=== PATIENT | male | born 1950 | race Caucasian/White ===

== ENCOUNTER 2018-01-23 11:32 | Observation (INO) | payer OTHER ==
[2017-12-22 13:12] VITALS: Ht 170.2 cm; Wt 122.6 kg
--- NOTE | 2017-12-22 13:42 | PAT Medication Instructions ---
Service Date Dec 22, 2017. Current Home Medication List Aspirin (Aspirin Ec), 81 MG PO HS Fluticasone Prop/Salmeterol (Advair Diskus 500/50 60 Dose), 1 PUFF INH BID Fluticasone Propionate (Nasal) (Flonase Allergy Relief), 2 SPRAYS INTNAS QAM Gabapentin (Neurontin), 600 MG PO BID Glimepiride (Glimepiride), 8 MG PO QAM Insulin Glargine (Lantus), 30 UNITS SC AMPM Losartan Potassium (Cozaar), 50 MG PO QAM Metformin Hcl (Glucophage), 1,000 MG PO BID Montelukast Sodium (Singulair), 10 MG PO QAM Oxycodone/Acetaminophen 7.5MG/325MG (Percocet 7.5MG/325MG), 1 TAB PO Q8H PRN for N Pantoprazole (Protonix), 40 MG PO BID Polyethylene Glycol-Propylene (Systane), 1 DROPS OP QPM Ranitidine (Zantac), 150 MG PO HS Tamsulosin Hcl (Flomax), 0.4 MG PO BID Testosterone Cypionate (Testosterone Cypionate), 200 MG INJ [id number] Tiotropium [place] (Spiriva Handihaler), 1 CAP INH QAM [Albuterol Neb], 1 PUFF INH QPM Medication Instructions For Your Scheduled Surgery -Continue as directed: Testosterone Cypionate (Testosterone Cypionate), 200 MG INJ [id number] - Hold the following medications the morning of surgery: Glimepiride (Glimepiride), 8 MG PO QAM Losartan Potassium (Cozaar), 50 MG PO QAM Metformin Hcl (Glucophage), 1,000 MG PO BID - Take the following medications the morning of surgery with a sip of water: Fluticasone Prop/Salmeterol (Advair Diskus 500/50 60 Dose), 1 PUFF INH BID Fluticasone Propionate (Nasal) (Flonase Allergy Relief), 2 SPRAYS INTNAS QAM Gabapentin (Neurontin), 600 MG PO BID Montelukast Sodium (Singulair), 10 MG PO QAM Oxycodone/Acetaminophen 7.5MG/325MG (Percocet 7.5MG/325MG), 1 TAB PO Q8H PRN ( if needed, can be taken up to four hours before surgery) Pantoprazole (Protonix), 40 MG PO BID Tamsulosin Hcl (Flomax), 0.4 MG PO BID Tiotropium [place] (Spiriva Handihaler), 1 CAP INH QAM - Take the following medications as scheduled the night before surgery: Aspirin (Aspirin Ec), 81 MG PO HS Fluticasone Prop/Salmeterol (Advair Diskus 500/50 60 Dose), 1 PUFF INH BID Gabapentin (Neurontin), 600 MG PO BID Insulin Glargine (Lantus), 30 UNITS SC AMPM Metformin Hcl (Glucophage), 1,000 MG PO BID Oxycodone/Acetaminophen 7.5MG/325MG (Percocet 7.5MG/325MG), 1 TAB PO Q8H PRN ( if needed) Pantoprazole (Protonix), 40 MG PO BID Polyethylene Glycol-Propylene (Systane), 1 DROPS OP QPM Ranitidine (Zantac), 150 MG PO HS Tamsulosin Hcl (Flomax), 0.4 MG PO BID [Albuterol Neb], 1 PUFF INH QPM - For Insulin Dependent Diabetic patients: Test blood sugar A.M. of surgery. - If BLOOD SUGAR IS GREATER THAN 150, take half of your regular dose of: Insulin Glargine (Lantus)-- TAKE 15 UNITS - If BLOOD SUGAR IS LESS THAN 150, do not take any: Insulin Glargine ( Lantus) If you have any questions please call us at [phone] or [phone] or [phone]
--- NOTE | 2017-12-22 14:20 | DIAGNOSTIC IMAGING REPORT ---
CHEST 2 VIEWS ROUTINE CLINICAL HISTORY: Preoperative chest COMPARISON STUDY: No previous studies for comparison. FINDINGS: The cardiac and mediastinal contours are normal. There is no evidence of focal pulmonary consolidation. There is no evidence of failure. No pleural effusions are visualized.[ There are old bilateral rib fractures. IMPRESSION: No active disease in the chest. Electronically signed by: Xavier Warren M.D. 12/22/2017 2:19 PM Dictated Date/Time: 12/22/2017 2:18 PM
[2017-12-22 14:55] LABS: BASO % 0.6 %; BASO ABS # 0.06 K/uL (0-0.2); EOS % 0.5 %; EOS ABS # 0.05 K/uL (0-0.5); HEMATOCRIT 43.9 % (42-52); HEMOGLOBIN 14.4 g/dL (14.0-18.0); IG# 0.14 K/uL (0.00-0.02); LYMPH % 22.7 %; LYMPH ABS # 2.18 K/uL (1.2-3.4); MEAN CELL VOLUME 85.4 fL (80-100); MEAN CORPUSCULAR HGB CONC 32.8 g/dl (32-36); MEAN PLATELET VOLUME 9.2 fL (7.4-10.4); MONO % 9.2 %; MONO ABS # 0.88 K/uL (0.11-0.59); NEUT % 65.5 %; NEUT ABS # 6.29 K/uL (1.4-6.5); PLATELET COUNT 203 K/uL (130-400); RED CELL DISTRIBUTION WIDTH CV 15.2 % (11.5-14.5); RED CELL DISTRIBUTION WIDTH SD 47.1 fL (36.4-46.3)
[2017-12-22 15:06] LABS: PTT PATIENT 23.8 SECONDS (21.0-31.0)
[2017-12-22 15:19] LABS: CALCIUM 9.3 mg/dl (8.5-10.1); CREATININE 0.87 mg/dl (0.60-1.40); POTASSIUM 3.8 mmol/L (3.5-5.1)
--- NOTE | 2018-01-22 07:01 | HISTORY & PHYSICAL EXAMINATION ---
DATE OF ADMISSION: 01/23/2018 CHIEF COMPLAINT: Avascular necrosis of the left shoulder. HISTORY OF PRESENT ILLNESS: Jake is a very pleasant 67-year-old male who fell and sustained a proximal humerus fracture about a year ago. He was treated in [place] conservatively. The fracture went on to heal, but he has been having significant increase in shoulder pains recently. He has very limited range of motion of his shoulder. MRI showed an intact rotator cuff, but avascular necrosis of the humeral head. He has elected to proceed with total shoulder arthroplasty. PAST MEDICAL HISTORY: Significant for insulin-dependent diabetes. PAST SURGICAL HISTORY: Significant for a right total knee arthroplasty and surgery to his finger. ALLERGIES: BEE STINGS. MEDICATIONS: Include Lantus and metformin. FAMILY HISTORY: Significant for stroke and diabetes. SOCIAL HISTORY: He is , has 1-2 drinks a week and is moderately active. REVIEW OF SYSTEMS: He complains of left shoulder pain. All other pertinent review of systems are negative. PHYSICAL EXAMINATION: GENERAL: He is awake, alert and orient x3. He is in no apparent distress. HEENT: Pupils equal, round react to light. Extraocular movements are intact. Oral mucosa is pink and moist. HEART: Regular rate per radial pulse. LUNGS: [place] symmetrically bilaterally with no audible breath sounds. ABDOMEN: Soft, nontender, nondistended. MUSCULOSKELETAL: On physical examination of the left shoulder, he has very poor range of motion only about 30 degrees of forward elevation and 30 degrees of abduction. Passively it is hard for me to get him any further than that. He seems to have about 5/5 muscle strength with external rotation. He is unable to do any full can testing. He has a mildly positive belly press test. Significant tenderness to palpation over the anterior glenohumeral joint line. IMAGING DATA: MRI of the shoulder shows avascular necrosis of the humeral head. The rotator cuff appears mostly intact. The long head of biceps tendon is not well visualized. IMPRESSION: Avascular necrosis of the left humerus. PLAN: We will proceed with a left shoulder replacement. He understands it will either be a total shoulder arthroplasty or reverse, it depends on what I see intraoperatively. Postoperatively, he will be placed in an arm sling and kept overnight in the hospital for postoperative medical management.
[2018-01-23] VITALS (9 sets, daily range): BP systolic 95–135; BP diastolic 69–93; PULSE 79–107; TEMP 36.2–36.8; O2SAT 93–99
[~2018-01-23] VITALS: Ht 170.2 cm; Wt 122.6 kg
[2018-01-23] MEDS: TRANEXAMIC ACID INJ 1,000 MG x 2 Bags IV SCH ×4 (06:30→13:10)
[~2018-01-23 11:32] MED LIST: ACETAMINOPHEN 500 MG TAB PO SCH; ADVIN50/60 INH; ALBUTEROL NEB INH; ASPI81TA28 PO; ATROPINE SULFATE 0.1 MG/ML 5ML SYR IV PRN; CEFAZOLIN 2000MG IV PUSH 15 ML IV SCH; CEFAZOLIN 3000MG IV PUSH 22.5 ML IV SCH; EpHEDrine SULFATE INJ 50 MG/ML AMP IV PRN; FAMOTIDINE 20 MG TAB PO SCH; FENTANYL CITRATE INJ 50 MCG/1 ML 2 ML VIAL IV PRN; FLUT0.15 INTNAS; GABA-113 PO; GABAPENTIN 300 MG CAP PO SCH; GLIM4TAB2 PO; HYDROmorphone INJ 1 MG/ML SYR IV PRN; INSDGI SC; LACTATED RINGER'S 1000ML 1,000 ML IV SCH; LACTATED RINGER'S 1000ML IV SCH; LOSA50TA54 PO; METF-384 PO; MONT1TAB3 PO; ONDANSETRON INJ 2 MG/ML 2 ML VIAL IV PRN; OXYC7.5T65 PO; PANT40TA PO; PHENYLEPHRINE 100MCG/ML 5ML SYR IV PRN; POLYSOL4 OP; PROMETHAZINE HCL INJ 12.5 MG in SODIUM CHLORIDE 0.9% 50ML 50 ML IV PRN; RANI150T85 PO; ROPIVACAINE 0.5% 5 MG/ML 30 ML VIAL ONE; ROPIVACAINE 5MG/ML 30 ML 150 MG, BUPIVACAINE 0.5% MPF INJ 30 ML, EpINEphrine HCL INJ 0.... INFIL SCH; SPRIN/30 INH; TAMS0.4C38 PO; TEST1INJ2 INJ
--- NOTE | 2018-01-23 12:05 | History & Physical Bridge Note ---
H&P Re-Evaluation Bridge Note: I have examined the patient, reviewed the History & Physical and in the interval since the performance of the History & Physical I have noted the following changes of clinical significance: No changes noted
[2018-01-23] MEDS ORDERED: ORTHO JOINT ANESTHETIC ONE (12:32)
[2018-01-23] MEDS ORDERED: FENTANYL CITRATE INJ 50 MCG/1 ML 2 ML VIAL ONE (13:11)
[2018-01-23] MEDS ORDERED: MIDAZOLAM HCL 1 MG/ML 2ML VIAL ONE (13:11)
[2018-01-23] MEDS ORDERED: PROPOFOL IV EMULSION 10 MG/ML 20 ML VIAL IV ONE (14:30)
[2018-01-23] MEDS ORDERED: PHENYLEPHRINE HCL INJ 10 MG/ML VIAL ONE (14:30)
[2018-01-23] MEDS ORDERED: LIDOCAINE HCL 2% 2 ML VIAL (20MG/ML) ONE (14:30)
[2018-01-23] MEDS ORDERED: ONDANSETRON INJ 2 MG/ML 2 ML VIAL ONE (14:30)
[2018-01-23] MEDS ORDERED: ROCURONIUM BROMIDE 10 MG/ML 5 ML VIAL IV ONE (14:30)
[2018-01-23] MEDS: BACITRACIN 50000 UNIT VIAL ONE ×2 (14:52→14:53)
--- NOTE | 2018-01-23 15:01 | [facility] Post Operative Brief Note ---
Immediate Operative Summary Operative Date Jan 23, 2018. Pre-Operative Diagnosis Avascular Necrosis of the Left Humerus Post-Operative Diagnosis Avascular Necrosis of the Left Humerus Procedure(s) Performed Left Reverse Total Shoulder Arthroplasty, Uncemented Surgeon Dr. Bandar Albright Box Car Checker Surgeon(s) Jeancarlos Bob PA-C Estimated Blood Loss 200ml Findings Consistent with Post-Op Diagnosis Specimens Permanent Solution: A.) Left Humeral Head Drains None Anesthesia Type General Regional Complication(s) none Disposition Disposition: Recovery Room / PACU
[2018-01-23] MEDS ORDERED: DEXTROSE 50% 50 ML SYR IV PRN (15:15)
[2018-01-23] MEDS ORDERED: MoRPHine SULFATE 2 MG/ML CARP IV PRN (15:15)
[2018-01-23] MEDS ORDERED: GLUCOSE 40% GEL 15 GM TUBE PO PRN (15:15)
[2018-01-23] MEDS ORDERED: ONDANSETRON INJ 2 MG/ML 2 ML VIAL IV PRN (15:15)
[2018-01-23] MEDS ORDERED: SOD PHOSPHATE/SOD BIPHOSPHATE ENEMA 132 ML BTL PR PRN (15:15)
[2018-01-23] MEDS ORDERED: GLUCAGON FOR INJ 1 MG VIAL SQ PRN (15:15)
[2018-01-23] MEDS ORDERED: MAGNESIUM HYDROXIDE SUSP 30 ML UDC PO PRN (15:15)
[2018-01-23] MEDS ORDERED: METOCLOPRAMIDE HCL INJ 5 MG/ML 2 ML VIAL IV PRN (15:15)
[2018-01-23] MEDS ORDERED: BISACODYL 10 MG SUPP PR PRN (15:15)
[2018-01-23] MEDS ORDERED: GLUCOSE 10 TABS/TUBE PO PRN (15:15)
[2018-01-23] MEDS ORDERED: NALOXONE HCL 0.4 MG/1 ML VIAL/CARP IV PRN (15:15)
[2018-01-23] MEDS ORDERED: IV FLUIDS COMPLETED PRN (15:30)
[2018-01-23] MEDS ORDERED: PHARMACY GLYCEMIC MGMT CONSULT PRN (15:31)
--- NOTE | 2018-01-23 15:39 | DIAGNOSTIC IMAGING REPORT ---
L SHOULDER MIN 2 VIEWS ROUTINE CLINICAL HISTORY: Post shoulder surgery COMPARISON: None. DISCUSSION: Anatomic alignment posttotal left shoulder arthroplasty. Expected soft tissue postoperative change. IMPRESSION: Anatomic alignment post total left shoulder arthroplasty. The above report was generated using voice recognition software. It may contain grammatical, syntax or spelling errors. Electronically signed by: Raza Alexander M.D. 01/23/2018 3:38 PM Dictated Date/Time: 01/23/2018 3:37 PM
[2018-01-23] MEDS: INSULIN ASPART 100 UNITS/ML 3 ML PEN SC SCH ×3 (16:00→21:56)
--- NOTE | 2018-01-23 16:00 | Anesthesiology Progress Note ---
Anesthesia Post Op Note Date & Time Jan 23, 2018 at 16:00 Vital Signs Pain Intensity: 0 Vital Signs Past 12 Hours Date Time Temp Pulse Resp B/P (MAP) Pulse Ox O2 Delivery O2 Flow Rate FiO2 01/23/18 15:46 36.6 87 22 132/90 (107) 94 Nasal Cannula 2 01/23/18 15:36 92 19 112/80 94 01/23/18 15:36 92 19 01/23/18 15:31 98 19 01/23/18 15:31 98 19 119/88 97 01/23/18 15:26 93 16 123/90 96 01/23/18 15:26 93 16 01/23/18 15:23 122/64 01/23/18 15:22 101/84 01/23/18 15:21 96 22 01/23/18 15:21 101 22 100 01/23/18 15:16 102 20 01/23/18 15:16 36.8 100 20 151/92 (116) 96 Oxymask 10 01/23/18 15:16 102 20 97 01/23/18 12:19 36.8 105 20 135/93 96 Room Air Notes Mental Status: alert / awake / arousable, participated in evaluation Pt Amnestic to Procedure: Yes Nausea / Vomiting: adequately controlled Pain: adequately controlled Airway Patency, RR, SpO2: stable & adequate BP & HR: stable & adequate Hydration State: stable & adequate Anesthetic Complications: no major complications apparent
--- NOTE | 2018-01-23 16:43 | OPERATIVE REPORT ---
DATE OF OPERATION: 01/23/2018 PREOPERATIVE DIAGNOSIS: Avascular necrosis following left proximal humerus fracture. POSTOPERATIVE DIAGNOSIS: Same. PROCEDURE: Left reverse total shoulder arthroplasty. SURGEON: Dr. Bandar Albright. GOLF COURSE MANAGER: Dominic Bob PA-C, whose assistance was necessary for positioning the arm and helping with retraction and closure. ANESTHESIA: General with left interscalene nerve block. COMPLICATIONS: None. CONDITION: Stable to PACU. INDICATIONS: Jake is a pleasant 67-year-old male who sustained a left proximal humerus fracture about a year ago. It looked like he went on to a union; however, he then began having more and more pain. MRI showed avascular necrosis of the humeral head and then followup x-rays showed collapse. He had significant tightness and weakness of his shoulder as well. After failing conservative treatment, he elected to undergo arthroplasty. DESCRIPTION OF THE PROCEDURE: On 01/23/2018, he arrived at [facility] for the above procedures. He was seen in the preoperative holding area and the operative extremity was identified and signed. He was given a preoperative antibiotic and a left interscalene nerve block. He was taken back to the operating room, laid on table in supine position and put under general anesthesia. He was then put into the beachchair position. The left shoulder was prepped and draped in sterile fashion. Time-out was done. The patient and the operative extremity was properly identified. A deltopectoral approach was used. Dissection was taken down through the fascia and the anterior shoulder was exposed. The long head of the biceps tendon had been traumatically tenotomized. The subscapularis was then peeled off the lesser tuberosity and the proximal humerus was exposed. There was a complete collapse of the entire humeral head. He had a very poor motion of his shoulder, and given the poor motion and the poor quality, I felt he would do better with a reverse shoulder replacement, so I could do a few more releases. I did release some of the supraspinatus and was able to deliver the humeral head out of the wound. Sequential reaming up to a size 9 reamer was done. Off that reamer, a proximal humeral resection guide was placed and proximal humerus was resected at 135 degrees of inclination and 20 degrees of retroversion. The glenoid was then exposed. Time was spent doing a complete circumferential capsular and labral release. The guide was placed in the inferior aspect of the glenoid and a guide pin was placed at 10 degrees of inclination. A 25-mm mini baseplate was then reamed. The mini baseplate was then impacted into place. A central screw was placed followed by superior and inferior locking screws. A 26-mm eccentric standard glenosphere was then impacted into place. The proximal humerus was then exposed. Sequential broaching up to a size 9 broach was done. A standard humeral tray was trialed, the shoulder was reduced, brought through a full range of motion and felt to be stable. The broach was removed. The final size 9 mini stem was then impacted into place. A size 44 standard humeral bearing was snapped onto a humeral tray and then impacted onto the stem of the humerus. The shoulder was reduced, brought through a full range of motion and felt to be stable. The surrounding soft tissues were injected with 100 mL of an orthopedic pain control cocktail. The wound was then irrigated with 3 liters normal saline solution with bacitracin. The subscapularis was then tenodesed back to the lesser tuberosity with transosseous FiberWire sutures and [id number] sutures. The axillary nerve was palpated. The skin was then closed with 2-0 Vicryl, 3-0 V-Loc suture and zuri. He was then placed in a soft dressing and regular arm sling. He was then extubated, transferred to a hospital bed and taken to the postanesthesia care unit in stable condition. He tolerated the procedure well. IMPLANTS USED: I used a Biomet comprehensive left total shoulder arthroplasty system with a size 25-mm mini baseplate with a 30-mm central screw, 40 mm and 25 mm peripheral locking screws, a 36-mm standard eccentric glenosphere, a size 9 mini pressfit humeral stem and a standard humeral tray and bearing. I attest to the content of the Intraoperative Record and any orders documented therein. Any exception s are noted below.
--- NOTE | 2018-01-23 16:44 | Pharmacy Progress Note ---
Glycemic Control Intl Consult Date of Service Jan 23, 2018. Scope Glycemic Pharmacist consulted by Dr Albright on 01/23/18 for glycemic control and to write orders per [facility] inpatient glycemic control protocol Objective Weight (Kilograms): 122.6 Accuchecks BSG (last 24hrs): Test 01/23/18 11:51 Bedside Glucose 146 mg/dl (70-99) Recent Pertinent Medications Outpatient Anti-diabetic Regimen: * Glimepiride (Amaryl) 8mg PO daily * Metformin 1,000mg PO BIDM * Glargine (Lantus) 30 units SQ BID Risk Factors for Insulin Resistance: * Steroids: in orthomix * Recent Surgery * Diet Assessment & Plan ASSESSMENT: * 67yo T2DM male with unknown degree of outpatient control. No A1c listed in medical record. * Will order for tomorrow with AM labs per protocol. * Pt is maintained on SQ basal insulin + oral antidiabetic agents as an outpatient * Oral agents are not recommended for inpatient use d/t drug interactions, changing PO intake, and difficulty titrating for acute hyper/hypoglycemia. ADA recommends re-initiating outpatient oral agents 1-2 days prior to discharge if/ when appropriate if they were held on admission. * Will hold oral agents for admission and utilize SQ basal bolus insulin regimen which is the recommended regimen for inpatient glycemic control. * Will initiate outpatient glargine/basal insulin dosing and start NovoLog bolus insulin per weight. * Since PO intake is likely going to be less than outpatient (d/t controlled CHO diabetic diet in house) will give a slightly reduced dose of basal insulin if BSG <140 mg/dl. * Titrate based insulin dosing on BSG trends to maintain BSG <200 mg/dl ( ideally <150 mg/dl) to prevent post-op complications PLAN FOR INPATIENT GLYCEMIC CONTROL: * Holding outpatient oral diabetes medications * Will resume metformin once PO intake adequte * Will hold glimepiride (Amaryl) since this is not recommended in house secondary to high risk of hypoglycemia * Basal insulin * Lantus 30 units SQ BID * Will give reduced dose of 20 units if BSG <140 mg/dl * Bolus insulin * NovoLog per scale ACHS or Q6hrs while NPO. Extra check/coverage tonight at 0200 for round the clock coverage * Goal Range: Low 110 mg/dL - High 140 mg/dL * Correction Factor: 20 mg/dL/unit * Nutritional / Prandial insulin per carb ratio of 1 unit per 5 grams CHO consumed * Please note that the plan above was derived based on current level of insulin resistance and hospital stress. These recommendations are appropriate for inpatient admission only. Plan of care upon discharge will need to be reassessed to avoid potential outpatient hypo/hyperglycemia. Thank you.
[2018-01-23] MEDS: POTASSIUM CHLORIDE INJ 10 MEQ in SODIUM CHLORIDE 0.9% 1000ML 1,000 ML IV SCH (17:16)
[2018-01-23] MEDS: KETOROLAC TROMETHAMINE 15 MG/ML VIAL IV. SCH (17:24)
[2018-01-23] MEDS: OXYCODONE HCL IR 5 MG TAB (IMMEDIATE RELEASE) PO PRN (17:24)
[2018-01-23] MEDS: INSULIN GLARGINE SOLOSTAR 100 UNITS/ML 3 ML PEN SC SCH (19:34)
[2018-01-23] MEDS ORDERED: RANITIDINE HCL 150 MG TAB PO SCH (21:00)
[2018-01-23] MEDS ORDERED: ALBUTEROL 0.083% NEBU SOLN 3 ML VIAL INH SCH (21:00)
[2018-01-23] MEDS ORDERED: MONTELUKAST SOD 10 MG TAB PO SCH (21:00)
[2018-01-23] MEDS ORDERED: SENNA 8.6 MG TAB PO SCH (21:00)
[2018-01-23] MEDS ORDERED: ASPIRIN 81 MG ECTAB PO SCH (21:00)
[2018-01-23] MEDS: FLUTICASONE/SALMETEROL (ADVAIR) 500/50 INH 14 PUFF INH SCH (21:54)
[2018-01-23] MEDS: TAMSULOSIN HCL 0.4 MG CAP PO SCH (21:57)
[2018-01-23] MEDS: DOCUSATE SODIUM 100 MG CAP PO SCH (21:58)
[2018-01-23] MEDS: PANTOprazole SOD 40 MG TAB PO SCH (21:58)
[2018-01-23] MEDS: GABAPENTIN 600 MG TAB PO SCH (21:58)
[2018-01-23] MEDS: ACETAMINOPHEN IV 1,000 MG in EMPTY BAG 0 ML IV SCH (21:59)
[2018-01-23] MEDS: CEFAZOLIN IV 2,000 MG in SYRINGE 0 ML IV SCH (22:05)
[2018-01-24] MEDS: KETOROLAC TROMETHAMINE 15 MG/ML VIAL IV. SCH ×3 (00:04→11:23)
[2018-01-24] MEDS ORDERED: INFLUENZA ADMINISTRATION CHARGE ONE (01:00)
[2018-01-24] MEDS ORDERED: INFLUENZA VIRUS QUAD VACCINE 0.5 ML SYR IM. ONE (01:00)
[2018-01-24] MEDS ORDERED: INSULIN ASPART 100 UNITS/ML 3 ML PEN SC SCH (02:00)
[2018-01-24] MEDS: OXYCODONE HCL IR 5 MG TAB (IMMEDIATE RELEASE) PO PRN (02:15)
[2018-01-24] MEDS: POTASSIUM CHLORIDE INJ 10 MEQ in SODIUM CHLORIDE 0.9% 1000ML 1,000 ML IV SCH (02:21)
[2018-01-24 03:46] VITALS: BP 118/80; PULSE 87; TEMP 36.6; O2SAT 96
[2018-01-24] MEDS: CEFAZOLIN IV 2,000 MG in SYRINGE 0 ML IV SCH (05:54)
[2018-01-24] MEDS: ACETAMINOPHEN IV 1,000 MG in EMPTY BAG 0 ML IV SCH (06:00)
[2018-01-24 06:35] LABS: HEMATOCRIT 42.7 % (42-52); HEMOGLOBIN 13.4 g/dL (14.0-18.0); MEAN CELL VOLUME 86.1 fL (80-100); MEAN CORPUSCULAR HGB CONC 31.4 g/dl (32-36); MEAN PLATELET VOLUME 9.4 fL (7.4-10.4); PLATELET COUNT 166 K/uL (130-400); RED CELL DISTRIBUTION WIDTH CV 15.4 % (11.5-14.5); RED CELL DISTRIBUTION WIDTH SD 48.5 fL (36.4-46.3); WHITE BLOOD COUNT 13.81 K/uL (4.8-10.8)
[2018-01-24 06:59] VITALS: BP 139/75; PULSE 91; TEMP 36.5; O2SAT 94
[2018-01-24 07:13] LABS: CALCIUM 8.3 mg/dl (8.5-10.1)
[2018-01-24 07:52] LABS: HEMOGLOBIN A1C 9.9 % (4.5-5.6)
[2018-01-24] MEDS: FLUTICASONE/SALMETEROL (ADVAIR) 500/50 INH 14 PUFF INH SCH (08:53)
[2018-01-24] MEDS: TAMSULOSIN HCL 0.4 MG CAP PO SCH (08:55)
[2018-01-24] MEDS: DOCUSATE SODIUM 100 MG CAP PO SCH (08:55)
[2018-01-24] MEDS: GABAPENTIN 600 MG TAB PO SCH (08:56)
[2018-01-24] MEDS: PANTOprazole SOD 40 MG TAB PO SCH (08:56)
[2018-01-24] MEDS ORDERED: MULTIVITAMIN TAB PO SCH (09:00)
[2018-01-24] MEDS ORDERED: LOSARTAN POTASSIUM 50 MG TAB PO SCH (09:00)
[2018-01-24] MEDS ORDERED: TIOTROPIUM BROMIDE 5 PUFF/90 MCG INH INH SCH (09:00)
[2018-01-24] MEDS ORDERED: FLUTICASONE PROPIONATE NA SPR 16 GM BTL NAE SCH (09:00)
[2018-01-24] MEDS: INSULIN ASPART 100 UNITS/ML 3 ML PEN SC SCH (09:06)
[2018-01-24] MEDS: INSULIN GLARGINE SOLOSTAR 100 UNITS/ML 3 ML PEN SC SCH (09:07)
[2018-01-24 09:33] VITALS: BP 139/75; PULSE 91; TEMP 36.5; O2SAT 94
[2018-01-24] MEDS ORDERED: OXYC7.5T65 PO (10:26)
--- NOTE | 2018-01-24 10:27 | Discharge Instructions ---
Discharge Instructions Date of Service Jan 24, 2018. Admission Reason for Admission: Left Shoulder Aseptic Necrosis Of Humerus Head Discharge Discharge Diagnosis / Problem: Left Reverse Shoulder Discharge Goals Goal(s): Decrease discomfort, Improve function Activity Recommendations Activity Limitations: as noted below . Instructions / Follow-Up Instructions / Follow-Up Activity and Therapy Recommendations: * Wear your sling for 3 weeks, unless otherwise instructed. You may remove your sling to shower and to dress, but otherwise, you should be in your sling at all times, including while sleeping * The shoulder replacement is very stable and you can use your hand while in the sling * Physical Therapy should start about 3-5 days from your day of surgery. Therapy will last about 8-12 weeks * You were shown a series of exercises in the hospital. Do these exercises daily including the exercises you were shown in physical therapy. Medications: * Narcotic You will likely be sent home from the hospital with a prescription for the narcotic pain medication that worked best throughout your stay. * Other medications may be prescribed for specific circumstances. If you have any questions, please call the office at . * Resume previous home medications unless otherwise instructed Dressing Care: If the incision is not draining then you may leave the zuri open to air. If there is a little bit of drainage or if the zuri are getting stuck on your clothing then cover the incision with a dry dressing. The zuri will be removed at your 2 week follow-up appointment. Showering: You may shower 5 days from the day of surgery. Let the soapy shower water run over the zuri and pat them dry. Do not scrub or soak the incision. Things To Watch For: * Drainage from the incision site that occurs more than one week after your surgery. * Increased redness at the incision site. * Fever above 102 degrees Fahrenheit. * Unusual chest pain or shortness of breath. * Call [facility] at with any of the above problems Follow-Up Visit: Follow-up with Dr. Albright 2 weeks after your day of surgery. An appointment was probably scheduled when you signed-up for surgery in the office. If you have any questions call Office Instructions: More detailed instructions as well as Frequently Asked Questions were provided in a folder by our office when you signed-up for surgery. Please review these instructions when you get home. If you have any further questions or concerns, please feel free to call the office at [phone] Current Hospital Diet Patient's current hospital diet: Diabetes Type 2 Diet Discharge Diet Recommended Diet: Diabetes Type 2 Diet Procedures Procedures Performed: Left Reverse Total Shoulder Arthroplasty, Uncemented Pending Studies Studies pending at discharge: no Laboratory Results Hemoglobin A1c Test 01/24/18 06:13 Range/Units Estimated Average Glucose 237 mg/dl Hemoglobin A1c 9.9 H 4.5-5.6 % Medical Emergencies . Who to Call and When: Medical Emergencies: If at any time you feel your situation is an emergency, please call 911 immediately. . Non-Emergent Contact Non-Emergency issues call your: Surgeon Call Non-Emergent contact if: wound has increased drainage, wound has increased redness . "Provider Documentation" section prepared by Bandar Albright. .
--- NOTE | 2018-01-24 11:01 | PROGRESS NOTE ---
DATE: 01/24/2018 CHIEF COMPLAINT: Status post left reverse shoulder arthroplasty, postop day #1. PROGRESS: Jake was seen and examined at bedside today. Overall, he is doing fairly well. He does not have too much pain in the shoulder. He was able to get some sleep last night and has no complaints. PHYSICAL EXAMINATION: LEFT SHOULDER: The dressing is clean and dry. He is wearing a sling as instructed. His radial, median and ulnar nerves are checked and intact at his wrist. His axillary nerve was not checked yet. LABORATORY DATA: He has an H&H today of 13.4 and 42.7. His glucose is 175. He is being managed by pharmacy with insulin. His vital signs are all stable on room air. He is voiding on his own. IMAGING: X-rays postoperatively of the left shoulder show the prosthesis to be in anatomic alignment without any evidence of fracture, dislocation or loosening. IMPRESSION: Status post reverse left shoulder arthroplasty, postop day #1. PLAN: At this point, he is doing fairly well. He will be seen by physical therapy today for hand, wrist, elbow and pendulum exercises. The nursing staff can discharge him to home later this morning.
--- NOTE | 2018-01-25 10:25 | DISCHARGE SUMMARY ---
DISCHARGE DIAGNOSIS: Avascular necrosis of the left humerus. PROCEDURE: Left reverse shoulder arthroplasty on 01/23/[address] Bandar Albright. DISCHARGE INSTRUCTIONS: 1. Aspirin 81 mg at night. 2. Advair 500/50 mg twice a day. 3. Flonase 2 sprays in the morning. 4. Neurontin 600 mg twice a day. 5. Glimepiride 8 mg daily. 6. Lantus 30 units subQ in the morning and evening. 7. Cozaar 50 mg daily. 8. Glucophage 1000 mg twice a day. 9. Singulair 10 mg daily. 10. Percocet 7.5/325 mg as needed for pain. 11. Protonix 40 mg twice a day. 12. Zantac 150 mg at night. 13. Flomax 0.4 mg twice a day. 14. Testosterone injections every 2 weeks. 15. Spiriva inhaler daily. 16. Albuterol inhaler in the evening. 17. Follow up with Dr. Albright in 2 weeks. 18. Left arm sling for 3 weeks. 19. Call the office of Dr. Albright with any questions or concerns. HOSPITAL COURSE: Jake is a pleasant 67-year-old male who sustained a left proximal humerus fracture over a year ago. It went on to heal, unfortunately went on to develop avascular necrosis of the left proximal humerus. After failing conservative treatment and with very limited range of motion of the shoulder, he decided to undergo shoulder arthroplasty. On 01/23/2018, he arrived at [facility] and underwent a reverse left shoulder arthroplasty without complications. He had a general anesthetic and a left interscalene nerve block. Postoperatively, he was placed in an arm sling and discharged to general orthopedic floors. His hospital course was uneventful. On postop day #1, his H&H was stable at 13.4 and 42.7. He was able to participate well with physical therapy, doing hand, wrist, elbow and pendulum exercises. His pain was well controlled. He was subsequently discharged to home with the above instructions.
== END 2018-01-24 12:48 | disposition home health service (06) ==
LOC: C.ACU 11:32 → C.3E 11:40 → ENRESERV 15:52
PROVIDERS: ADMIT Orthopaedic Surgery; ATTEND Orthopaedic Surgery
DX: M87.022 Idiopathic aseptic necrosis of left humerus (principal); M19.012 Primary osteoarthritis, left shoulder; Z87.81 Personal history of (healed) traumatic fracture; E11.9 Type 2 diabetes mellitus without complications; J44.9 Chronic obstructive pulmonary disease, unspecified; J45.909 Unspecified asthma, uncomplicated; G47.33 Obstructive sleep apnea (adult) (pediatric); N40.0 Benign prostatic hyperplasia without lower urinary tract symptoms; E66.01 Morbid (severe) obesity due to excess calories; Z68.41 Body mass index [BMI] 40.0-44.9, adult; Z79.82 Long term (current) use of aspirin; Z79.899 Other long term (current) drug therapy; Z96.651 Presence of right artificial knee joint; Z98.41 Cataract extraction status, right eye; Z98.42 Cataract extraction status, left eye; Z87.891 Personal history of nicotine dependence; Z91.030 Bee allergy status; Z82.3 Family history of stroke; Z83.3 Family history of diabetes mellitus